=== PATIENT | male | born 1980 | race Caucasian/White ===

== ENCOUNTER 2018-04-15 16:24 | Emergency (ER) | payer OTHER ==
--- NOTE | 2018-04-15 16:49 | ED Physician Documentation ---
PD HPI LOWER EXT INJURY - Stated complaint Stated Complaint: LEFT KNEE VS TREE - Chief complaint Chief Complaint: Ext Problem - History obtained from History obtained from: Patient - History of Present Illness PD HPI LOW EXT INJURY LOCATION: Left, Knee Type of injury: Blunt / blow (he was cutting down tree and a log kicked back and struck him in the knee, pushing him back and rolled down a small hill. He thinks he was knocked out, as he felt he "came to", but only briefly. [employer] was still running not near him. He did not get cut with saw. Pain mainly left knee anteriorly.) Timing - onset: Today Timing - details: Abrupt onset, Still present Worsened by: Moving, Palpating, Other (walking) Associated symptoms: Swelling. No: Weakness, Numbness Similar symptoms before: Has not had sx before Recently seen: Not recently seen Review of Systems Constitutional: denies: Fever, Chills Nose: denies: Rhinorrhea / runny nose, Congestion Throat: denies: Sore throat Respiratory: denies: Cough GI: denies: Vomiting, Diarrhea Musculoskeletal: reports: Joint pain (left knee anteriorly, with swelling and pain.) Neurologic: denies: Focal weakness, Numbness, Confused, Altered mental status, Headache PD PAST MEDICAL HISTORY - Present Medications Home Medications: Ambulatory Orders Medication Instructions Recorded Confirmed Hydrocodone/Acetaminophen [Norton 1 each PO Q6H PRN #15 tablet 04/15/18 5-325 Tablet] - Allergies Allergies/Adverse Reactions: Allergies Allergy/AdvReac Type Severity Reaction Status Date / Time amoxicillin Allergy Unknown Verified 04/15/18 16:30 Penicillins Allergy Unknown Verified 04/15/18 16:30 Sulfa (Sulfonamide Allergy Unknown Verified 04/15/18 16:30 Antibiotics) PD ED PE NORMAL - Vitals Vital signs reviewed: Yes - General General: Alert and oriented X 3, Well developed/nourished - HEENT HEENT: Atraumatic, PERRL, EOMI - Neck Neck: Supple, no meningeal sign, No bony TTP - Cardiac Cardiac: RRR, No murmur - Respiratory Respiratory: Clear bilaterally, Other (no chestwall tenderness) - Abdomen Abdomen: Soft, Non tender - Derm Derm: Normal color, Warm and dry - Extremities Extremities: Other (left knee anteriorly with swelling and tender, effusion. No gross deformity. Normal pulse in popliteal, and in foot. Good color and cap refill in foot. Ligament testing has some pain with cruciate testing, but very limited due to swelling and tender. ) - Neuro Neuro: No motor deficit, No sensory deficit Results - Vitals Vitals: Oxygen O2 Source Room air - Rads (name of study) left knee Radiology: Prelim report reviewed (no fractures. ), EMP read contemporaneously, See rad report PD MEDICAL DECISION MAKING - ED course Complexity details: considered differential (no ongoing concussive symptoms so did not test further. Knee with contusion and effusion and pain. No fractures. Unable to assess ligaments well currently. Will let swelling improve. Tx with knee immobilizer short term. ), d/w patient Departure - Departure Disposition: 01 Home, Self Care Clinical Impression: Strain of knee and leg, left Qualifiers: Encounter type: initial encounter Qualified Code(s): S86.912A - Strain of unspecified muscle(s) and tendon(s) at lower leg level, left leg, initial encounter Knee contusion Qualifiers: Encounter type: initial encounter Laterality: left Qualified Code(s): S80.02XA - Contusion of left knee, initial encounter Condition: Stable Record reviewed to determine appropriate education?: Yes Instructions: ED Sprain Knee Follow-Up: AYE SOUZA PA-C [Primary Care Provider] - Prescriptions: Hydrocodone/Acetaminophen [Norton 5-325 Tablet] 1 each PO Q6H PRN #15 tablet PRN Reason: Pain Comments: Use the knee brace when up and around for the next several days to week until improving. Crutches as needed for partial weightbearing or no weightbearing based on comfort. Use some anti-inflammatories such as ibuprofen or naproxen twice daily for the next week. Add Tylenol or hydrocodone if needed for pain. Follow-up with your primary if not improved well over the next several days to week as the swelling goes down in the abrupt injury so improves. Discharge Date/Time: 04/15/18 18:01
[2018-04-15] MEDS ORDERED: KETOROLAC 30 MG/ML VIAL IM STA (16:58)
[2018-04-15] MEDS ORDERED: HYDROcod/ACETAM 5/325 MG TABLET PO STA (16:59)
--- NOTE | 2018-04-15 17:35 | XRAY Report ---
Reason: Trauma Procedure Date: 04/15/2018 Accession Number: [id number] / [id number] Procedure: XR - Knee 4 View LT CPT Code: FULL RESULT: EXAM: LEFT KNEE RADIOGRAPHY EXAM DATE: 04/15/2018 05:03 PM. CLINICAL HISTORY: Trauma. COMPARISON: None. TECHNIQUE: 5 views. FINDINGS: Bones: Bone island tibia No fractures or bone lesions. Joints: Normal. No effusion. No subluxations. Soft Tissues: Calcification in the patellar tendon . Soft tissue swelling. IMPRESSION: Negative for fracture RADIA
[2018-04-15 17:55] VITALS: BP 191/100
== END 2018-04-15 18:01 | disposition home or self-care (01) ==
LOC: ED 16:24
DX: S86.912A Strain of unspecified muscle(s) and tendon(s) at lower leg level, left leg, initial encounter (principal); S80.02XA Contusion of left knee, initial encounter; W20.8XXA Other cause of strike by thrown, projected or falling object, initial encounter; Y93.H2 Activity, gardening and landscaping
CPT/HCPCS: 73564; 96372; 99283; A9270

== ENCOUNTER 2022-03-26 09:23 | Outpatient (CLI) | payer OTHER ==
[2022-03-26 14:35] LABS: BASOPHILS # (AUTO) 0.1 10^3/uL (0.0-0.1); BASOPHILS % (AUTO) 1.1 %; EOSINOPHILS # (AUTO) 0.1 10^3/uL (0.0-0.7); EOSINOPHILS % (AUTO) 2.6 %; HCT - HEMATOCRIT 45.8 % (42.0-52.0); HGB - HEMOGLOBIN 14.8 g/dL (14.0-18.0); LYMPHOCYTES # (AUTO) 1.3 10^3/uL (1.5-3.5); LYMPHOCYTES % (AUTO) 29.3 %; MEAN CORPUSCULAR HEMOGLOBIN 31.8 pg (27.0-31.0); MEAN CORPUSCULAR HGB CONC 32.3 g/dL (32.0-36.0); MEAN CORPUSCULAR VOLUME 98.5 fL (80.0-94.0); MEAN PLATELET VOLUME 10.2 fL (7.4-11.4); MONOCYTES # (AUTO) 0.5 10^3/uL (0.0-1.0); MONOCYTES % (AUTO) 11.4 %; NEUTROPHILS # (AUTO) 2.5 10^3/uL (1.5-6.6); NEUTROPHILS % (AUTO) 55.2 %; PLT - PLATELET COUNT 255 10^3/uL (130-450); RED BLOOD COUNT 4.65 10^6/uL (4.70-6.10); RED CELL DISTRIBUTION WIDTH 12.3 % (12.0-15.0); WHITE BLOOD COUNT 4.6 x10^3/uL (4.8-10.8)
[2022-03-26 15:24] LABS: ALBUMIN 4.5 g/dL (3.2-5.5); ALBUMIN/GLOBULIN RATIO 1.3 (1.0-2.2); BILIRUBIN,TOTAL 1.6 mg/dL (0.2-1.0); CALCIUM 9.1 mg/dL (8.5-10.3); CREATININE 0.9 mg/dL (0.6-1.2); TOTAL PROTEIN 7.9 g/dL (6.7-8.2)
[2022-03-26 16:36] LABS: BILIRUBIN,DIRECT 0.2 mg/dL (0.1-0.5)
== END 2022-03-26 09:24 | disposition home or self-care (01) ==
LOC: LAB.S 09:23
PROVIDERS: ATTEND Physician Assistant
DX: I10 Essential (primary) hypertension (principal); R74.01 Elevation of levels of liver transaminase levels
CPT/HCPCS: 36415; 80053; 82248; 82728; 83540; 83690; 84443; 84466; 85025

== ENCOUNTER 2022-05-03 06:47 | Outpatient (CLI) | payer OTHER ==
--- NOTE | 2022-05-03 13:45 | Ultrasound Report ---
PROCEDURE: Abdomen Limited INDICATIONS: HTN, ELEVATION OF LIVER TRANSAMINASE LEVELS TECHNIQUE: Real-time scanning was performed of the abdominal and retroperitoneal organs, with image documentatio n. COMPARISON: None. FINDINGS: Liver: Increased echogenicity with loss of portal wall echogenicity in the right hepatic lobe, consi stent with moderate steatosis. Gallbladder: Unremarkable. Biliary ducts: Intrahepatic bile ducts are non-dilated. Extrahepatic bile duct caliber measures 3.2 mm. Normal is 6-7 mm or less in diameter, or 10 mm or less post-cholecystectomy. Pancreas: Visualized portions of the pancreas are sonographically normal. Right kidney: Normal in size and echotexture. Right kidney measures 13.5 cm long. No hydronephrosis or nephrolithiasis. No solid masses. No complex renal cystic lesions which require follow-up. Aorta: Visualized aorta is normal in caliber at less than 3 cm. IVC: Intrahepatic inferior vena cava is patent. Miscellaneous: No free abdominal fluid. IMPRESSION: 1.Moderate hepatic steatosis. Given elevated LFTs, consider GI referral as this patient is at risk fo r fibrosis. Reviewed by: Abdiel Singh on 05/03/2022 10:10 AM PDT Approved by: Abdiel Signh on 05/03/2022 10:10 AM PDT Station ID: [id number]
== END 2022-05-03 06:48 | disposition home or self-care (01) ==
LOC: DI 06:47
PROVIDERS: ATTEND Physician Assistant
DX: K76.0 Fatty (change of) liver, not elsewhere classified (principal)